=== PATIENT | male | born 1955 ===

== ENCOUNTER 2016-07-24 22:23 | Emergency (ER) | payer OTHER ==
[2016-07-24] MEDS ORDERED: KETOROLAC TROMETHAMINE 30 MG/ML 1 ML VIAL ONE (22:57)
[2016-07-24] MEDS ORDERED: ONDANSETRON 4 MG/2ML 2 ML VIAL ONE (22:57)
[2016-07-24 23:09] LABS: ABSOLUTE NEUTROPHIL COUNT 11.5 K/mm3 (1.8-7.7); BASO % 0.3 % (0.2-1.0); EOS # 0.2 (0.0-0.5); EOS % 1.2 % (0.9-2.9); HEMATOCRIT 44.4 % (32.0-52.0); HEMOGLOBIN 14.6 gm/l (14.0-18.0); IMM NEUT% 0.2 % (0-1); LYMPH # 1.1 (1.0-4.8); LYMPH % 8.1 % (15-45); MEAN CELL VOLUME 89.2 fl (80.0-94.0); MEAN CORPUSCULAR HEMOGLOBIN 29.3 pg (27.0-31.0); MEAN CORPUSCULAR HGB CONC 32.9 g/dl (33.0-37.0); MEAN PLATELET VOLUME 10.9 fl (7.4-10.4); MONO # 0.6 (0.0-0.8); MONO % 4.4 % (4-12); NEUT % 85.8 % (43-75); PLATELET COUNT 215 K/mm3 (130-400); RED CELL DISTRIBUTION WIDTH 12.9 % (11.5-14.5)
[2016-07-24 23:23] LABS: ALB/GLOB RATIO 1.3 (>1.0); ALBUMIN 4.2 gm/dL (3.5-5.7); CALCIUM 9.7 mg/dL (8.6-10.3)
--- NOTE | 2016-07-25 08:26 | RAD ---
CHEST 2 VIEWS HISTORY: Right arm pain. Frontal and lateral chest radiographs dated 07/24/2016. COMPARISON: None. FINDINGS: FOCAL AIRSPACE OPACITY: Minor patchy density of the lingula. Minor peribronchial cuffing is noted. PLEURAL EFFUSION: None. CARDIOMEDIASTINAL SILHOUETTE: Nonenlarged. Minor aortic arch calcification. PNEUMOTHORAX: None identified. 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 IMPRESSION: Minor lingular density, early pneumonia is possible. Scarring/atelectasis is another possibility. Streaky densities with bronchial wall thickening, correlate for bronchitis, atypical/from infection, or central airways disease. Evidence of aortic atherosclerotic disease.
== END 2016-07-24 23:59 | disposition home or self-care (01) ==
LOC: ED 22:23
DX: M79.601 Pain in right arm (principal); E10.8 Type 1 diabetes mellitus with unspecified complications; E78.5 Hyperlipidemia, unspecified; E78.00 Pure hypercholesterolemia, unspecified; X50.0XXA Overexertion from strenuous movement or load, initial encounter; Y93.9 Activity, unspecified; Y99.0 Civilian activity done for income or pay
CPT/HCPCS: 85025; 80053; 84484; 71020; 96375; 99283 ×2; 96374; 93005; J1885; J2405